=== PATIENT | female | born 1990 | race Caucasian/White ===

== ENCOUNTER 2016-05-29 22:30 | Emergency (ER) | payer OTHER ==
[2016-05-29 22:52] LABS: URINE BILIRUBIN NEGATIVE (NEGATIVE); URINE BLOOD TRACE (NEGATIVE); URINE GLUCOSE (UA) NORMAL (NORMAL); URINE KETONE NEGATIVE (NEGATIVE); URINE LEUKOCYTE ESTERASE 1+ (NEGATIVE); URINE NITRATE NEGATIVE (NEGATIVE); URINE PROTEIN NEGATIVE (NEGATIVE)
[2016-05-29 23:00] LABS: URINE RBC 0-5 /[HPF] (0-2); URINE SQUAMOUS EPITHELIAL CELL 15-20 /[HPF] (NONE SEEN)
[2016-05-29 23:01] LABS: URINE BACTERIA 2+ (NONE SEEN)
== END 2016-05-30 00:33 | disposition home or self-care (01) ==
LOC: ER 22:30
PROVIDERS: General Practice
DX: N39.0 Urinary tract infection, site not specified (principal); R53.1 Weakness; R50.9 Fever, unspecified; R00.0 Tachycardia, unspecified; F17.210 Nicotine dependence, cigarettes, uncomplicated; Z88.1 Allergy status to other antibiotic agents
CPT/HCPCS: 81001; 81025; 87400; 96365; 99070; 99283; 99283-25